=== PATIENT | female | born 1955 | race Caucasian/White ===

== ENCOUNTER → 2017-09-26 | Outpatient (CLI) | payer MEDICAID ==
[~2017-09-26] MED LIST: AUGMENTIN 875 M1 TA1 PO; KEFLEX500 MG PO; MULTIVITAMINS; VICODIN 5/500 505 MG PO; Vicodin 5/500 505 MG PO; ZOLOFT50 MG PO
== END | disposition home or self-care (01) ==
LOC: RAD 15:23
DX: M47.896 Other spondylosis, lumbar region (principal); M47.897 Other spondylosis, lumbosacral region; M16.11 Unilateral primary osteoarthritis, right hip

== ENCOUNTER → 2024-12-22 | Outpatient (CLI) | payer BC ==
[~2024-12-22] MED LIST changes: +DULOXETINE HCL30 MG PO; +GABAPENTIN100 M2 PO; +LATU80TA PO; +PREDNISONE20 M1 PO; +PROAIR HFA8.5 GM INH; +SYMB160 INH
[2024-12-22 12:52] LABS: BASO # 0.1 10*3/uL (0.0-0.1); BASO % 1.1 % (0.0-1.0); EOS # 0.1 10*3/uL (0.0-0.4); EOS % 2.2 % (1.0-4.0); HEMATOCRIT 40.7 % (37.0-47.0); MEAN CELL VOLUME 98.8 fl (81.0-99.0); MEAN CORPUSCULAR HGB 32.3 pg (27.0-31.0); MEAN CORPUSCULAR HGB CONC 32.7 g/dl (33.0-37.0); MEAN PLATELET VOLUME 9.7 fl (9.6-12.3); MONO # 0.4 10*3/uL (0.1-1.0); MONO % 5.6 % (3.0-9.0); NEUT # 3.5 10*3/uL (2.3-7.9); NEUT % 54.9 % (47.0-73.0); PLATELET COUNT AUTOMATED 273 10*3/uL (130-400); RED BLOOD COUNT 4.12 10*6/uL (4.10-5.10); WHITE BLOOD COUNT 6.4 10*3/uL (4.8-10.8)
[2024-12-22 13:21] LABS: ALKALINE PHOSPHATASE 106 U/L (46-116); BUN 12 mg/dl (9-23); CHLORIDE 103 mmol/L (98-107); POTASSIUM 3.9 mmol/L (3.4-5.1); SGPT/ALT 16 U/L (5-49); TOTAL PROTEIN 6.9 gm/dL (6.0-8.0)
[2024-12-22 13:31] LABS: BILIRUBIN Negative (Negative); BLOOD Negative (Negative); CLARITY Clear (Clear); COLOR Yellow (Yellow); GLUCOSE Negative (Negative); KETONE Negative (Negative); LEUKO ESTERASE Negative (Negative); NITRITE Negative (Negative); PH 5.5 (4.5-8.0); UROBILINOGEN 0.2 E.U./dl (0.0-1.0)
[2024-12-22 13:51] LABS: BACTERIA 2+
[2024-12-22 13:52] LABS: HYALINE CAST 0-2; YEAST TRACE
== END | disposition home or self-care (01) ==
LOC: US 12-03 11:00 → LAB 12:37 → US 13:00
PROVIDERS: ATTEND Urology
DX: N28.1 Cyst of kidney, acquired (principal); R32 Unspecified urinary incontinence